=== PATIENT | male | born 1985 | race Caucasian/White ===

== ENCOUNTER 2018-11-29 06:24 | Day surgery (SDC) | payer OTHER ==
[2018-11-28 08:46] VITALS: BMI 32.7
[2018-11-29] MEDS ORDERED: Fentanyl 250 MCG/5 ML VIAL ONE (06:54)
[2018-11-29] MEDS ORDERED: Midazolam HCl 2 mg/2 ml Vial ONE (06:54)
[2018-11-29 07:27] LABS: #Basophils 0.1 thou/uL (0.0-0.2); #Eosinphils 0.1 thou/uL (0.0-0.7); #Lymphocytes 3.3 thou/uL (1.20-3.40); #Monocytes 0.6 thou/uL (0.11-0.59); #Neutrophils 3.8 thou/uL (1.40-6.50); %Basophils 1.1 % (0.0-1.0); %Eosinophils 1.3 % (0.0-10.0); %Lymphocytes 41.5 % (21.0-51.0); %Monocytes 7.8 % (0.0-10.0); %Neutrophils 48.3 % (42.0-75.0); Hemoglobin 14.3 g/dL (14.0-18.0); Mean Corpuscular HGB CONC 34.3 g/dL (32.0-36.0); Mean Corpuscular Hemoglobin 29.2 pg (27.0-31.0); Mean Corpuscular Volume 85.2 fL (78.0-98.0); Mean Platelet Volume 8.1 fL (7.4-10.4); Platelet Count 255 thou/uL (130-400); RBC Distribution Width 12.5 % (11.5-14.5); Red Blood Cell (RBC) Count 4.89 mill/uL (4.70-6.10); White Blood Cell (WBC) Count 7.9 thou/uL (4.8-10.8)
[2018-11-29 07:41] LABS: Anion Gap 13 mmol/L (10-20); BUN (Urea Nitrogen) 12 mg/dL (8.9-20.6); Calc. Creatinine Clearance 172 mL/min (70-130); Calcium 9.3 mg/dL (7.8-10.44); Carbon Dioxide 25 mmol/L (22-29); Chloride 107 mmol/L (98-107); Estimated GFR-MDRD 89; Glucose 118 mg/dL (70-105); Potassium 4.4 mmol/L (3.5-5.1); Sodium 141 mmol/L (136-145)
[2018-11-29] MEDS ORDERED: HYDROmorphone 2 MG/ML VIAL ONE (10:41)
[2018-11-29] MEDS ORDERED: Labetalol HCl 100 MG/20 ML VIAL ONE (11:25)
[2018-11-29] MEDS ORDERED: Dexamethasone 20 MG/5 ML VIAL ONE (11:50)
[2018-11-29] MEDS ORDERED: Glycopyrrolate 0.2 MG/ML 5 ML SYRINGE ONE (11:50)
[2018-11-29] MEDS ORDERED: Rocuronium Bromide 10 MG/ML (10ML VIAL) ONE (11:50)
[2018-11-29] MEDS ORDERED: Lidocaine 1% PF 5 ML VIAL ONE (11:50)
[2018-11-29] MEDS ORDERED: Ketorolac Tromethamine 30 MG/ML VIAL ONE (11:50)
[2018-11-29] MEDS ORDERED: PROPOFOL 200 MG/20 ML VIAL ONE (11:50)
[2018-11-29] MEDS ORDERED: Ondansetron PF 4 MG/2 ML Vial ONE (11:50)
--- NOTE | 2018-11-29 16:57 | OP ---
DATE OF PROCEDURE: 11/29/2018 [employer]UM[employer] COMMUNICATIONS MANAGER: Nithya Jade PA-C. PROCEDURE PERFORMED: Left L5-S1 microdiskectomy with operative microscope. DESCRIPTION OF PROCEDURE: The patient was brought to the operating room and intubated. He was rolled in a prone position on gel-filled chest rolls. An incision was made exposing L5 and S1 on the left and the level was confirmed by x-ray. We performed left L5-S1 hemilaminectomy, removed the ligament, identified the left S1 nerve root and beneath that was a herniated disk. Using the operative microscope and microdissection techniques, we completely removed the disk herniation including several areas of calcification. A complete decompression was achieved. The wound was then extensively irrigated and MAC hemostasis was secured, and the wound was closed in anatomic layers after application of vancomycin powder. Job ID: [id number]
== END 2018-11-29 14:15 | disposition home or self-care (01) ==
LOC: SDC 06:24
PROVIDERS: ATTEND Neurological Surgery
PROC: 0SB20ZZ Excision of Lumbar Vertebral Disc, Open Approach (ICD-10-PCS; principal; 2018-11-29)
PROC: 01NB0ZZ Release Lumbar Nerve, Open Approach (ICD-10-PCS; principal; 2018-11-29)
DX: M51.16 Intervertebral disc disorders with radiculopathy, lumbar region (principal)
CPT/HCPCS: 36415; 76000; 85025; 93005; 93010; J0131; J0690; J1100; J1170; J1885; J2001; J2250; J2405; J2704; J3010; J3370